=== PATIENT | female | born 1950 | race Caucasian/White ===

== ENCOUNTER 2018-09-04 14:44 | Inpatient (IN) | payer SELFPAY | END 2018-09-05 13:53 | disposition left against medical advice (07) | LOC: JER 14:44 → JERBED 16:38 ==

== ENCOUNTER 2022-04-17 09:11 | Emergency (ER) | payer SELFPAY ==
[2022-04-17] MEDS ORDERED: ALBUTEROL SO4 2.5/IPRATROPIUM 0.5 INH SOL 3 ML VIAL.NEB. NEB ONE (09:22)
[2022-04-17] MEDS ORDERED: SODIUM CHLORIDE 1,000 ML IV SCH (09:30)
[2022-04-17] MEDS ORDERED: PROPOFOL 1,000,000 MCG/100 ML VIAL ONE (09:56)
[2022-04-17] MEDS ORDERED: PROPOFOL 1,000,000 MCG/100 ML VIAL IVPB SCH (10:00)
[2022-04-17 10:20] VITALS: TEMP 98.5; BMI 21.0
[2022-04-17 10:41] LABS: ARTERIAL BLD GAS O2 SATURATION 96.4 % (95-98); ARTERIAL BLOOD GAS BASE EXCESS -0.6 mmol/L (-2-2); ARTERIAL BLOOD GAS PO2 99.5 mmHg (80-100); ARTERIAL BLOOD GAS pH 7.252 (7.350-7.450)
[2022-04-17 10:47] LABS: ALLENS TEST POSITIVE; VENT MODE A/C; VENT RATE 12
[2022-04-17] MEDS ORDERED: PIPERACILLIN/TAZOB 4.5 GM 4.5 GM/100 ML BAG IVPB ONE ×2 (11:07→11:15)
[2022-04-17] MEDS ORDERED: VANCOMYCIN 1 GM in D5W (PRE-DOCKED) 1,000 MG/250 ML IVPB ONE (11:07)
[2022-04-17 11:14] LABS: BASO % 0.6 % (0-2.0); EOS % 0.9 % (0-4.5); HEMATOCRIT 37.3 % (32.4-45.2); HEMOGLOBIN 11.7 GM/dL (10.7-15.3); LYMPH % 6.5 % (8-40); MCH 25.6 pg (25.7-33.7); MCHC 31.5 g/dl (32.0-36.0); MEAN CELL VOLUME 81.5 fl (80-96); MEAN PLT VOLUME 9.9 fl (7.5-11.1); MONO % 5.3 % (3.8-10.2); NEUT % 86.7 % (42.8-82.8); PLATELET COUNT 323 10^3/uL (134-434); RBC 4.58 M/mm3 (3.60-5.2); RDW 16.6 % (11.6-15.6); WHITE BLOOD COUNT 13.6 K/mm3 (4.0-10.0)
[2022-04-17] MEDS ORDERED: VANCOMYCIN/WATER FOR INJ (PEG) 1,000 MG/200 ML BAG IVPB ONE (11:15)
[2022-04-17 11:21] LABS: INR 1.15 (0.83-1.09); PROTHROMBIN TIME (PATIENT) 13.2 SEC (9.7-13.0)
[2022-04-17 11:36] LABS: ALBUMIN 3.3 g/dl (3.4-5.0); BLOOD UREA NITROGEN 18.6 mg/dL (7-18); CALCIUM 9.2 mg/dL (8.5-10.1)
[2022-04-17 11:41] LABS: BILIRUBIN,TOTAL 1.8 mg/dL (0.2-1); TOT PROT 7.9 g/dl (6.4-8.2)
[2022-04-17 11:55] VITALS: BP 158/88; PULSE 108; RESP 24
[2022-04-17 12:00] LABS: LACTIC ACID 3.5 mmol/L (0.4-2.0)
[2022-04-17 12:20] LABS: URINE COLOR YELLOW
[2022-04-17 12:21] LABS: URINE APPEARANCE CLEAR; URINE BILIRUBIN NEGATIVE (NEGATIVE); URINE KETONE NEGATIVE (NEGATIVE)
[2022-04-17 12:22] LABS: URINE LEUK ESTERASE NEGATIVE (NEGATIVE); URINE NITRITE NEGATIVE (NEGATIVE); URINE PROTEIN 4+ (NEGATIVE)
[2022-04-17 12:32] LABS: URINE RBC 600.5 /uL (0-23.9); URINE WBC 67.8 /uL (0-25.8)
[2022-04-17 12:33] LABS: EPI CELLS 25.8 /uL (0-25.1); URINE BACTERIA 10.6 /uL (0-1359)
== END 2022-04-17 10:45 | disposition short-term general hospital (02) ==
LOC: JER 09:11
PROC: 3E033GC Introduction of Other Therapeutic Substance into Peripheral Vein, Percutaneous Approach (ICD-10-PCS; principal; 2022-04-17)
DX: I63.9 Cerebral infarction, unspecified (principal)
CPT/HCPCS: 0241U-QW; 36415; 36600; 70450-TC; 70496-TC; 70498-TC; 71045-TC-FY; 80053; 80061; 81003; 82803; 82962; 83036; 83605; 84484; 85025; 85610; 85730; 86850; 86900; 86901; 87040; 93005; 93010; 99291; 99292; Q9967